=== PATIENT | female | born 2000 | race African-American/Black ===

== ENCOUNTER 2024-12-11 21:34 | Emergency (ER) | payer SELFPAY ==
[2024-12-11 22:20] LABS: Glucose, Urine (Dipstick) Normal (Negative); Leukocyte 100 (Negative); Protein, Urine (Dipstick) 100 mg/dl (Neg-Trace); Specific Gravity, Urine 1.005 (1.005-1.030)
[2024-12-11 22:41] LABS: #Basophils 0.07 10x3/uL (0.0-0.2); #Eosinophils 0.14 10x3/uL (0.0-0.5); #Monocytes 0.87 10x3/uL (0.0-1.1); #Neutrophils 8.46 10x3/uL (1.5-8.4); %Basophils 0.5 % (0.0-2.0); %Eosinophils 1.0 % (0.0-6.0); %Lymphocytes 29.7 % (18.0-47.0); %Monocytes 6.4 % (0.0-10.0); %Neutrophils 62.1 % (40.0-75.0); Hematocrit 37.8 % (34.9-44.5); Hemoglobin 12.3 g/dL (12.0-15.5); Mean Corpuscular Hemoglobin 25.8 pg (27.0-33.0); Mean Corpuscular Volume 79.2 fL (81.6-98.3); Platelet Count 281 10x3/uL (150-450); Red Blood Cell (RBC) Count 4.77 10x6/uL (3.90-5.03); White Blood Cell (WBC) Count 13.62 10x3/uL (3.5-10.5)
[2024-12-11 22:49] LABS: CAUTI Indications for Culture Dysuria,urgency,freq; RBC/HPF Greater than 50 HPF (0-3)
[2024-12-11 22:54] LABS: ALT (SGPT) 14 U/L (Less than 34); AST (SGOT) 24 U/L (11-34); Albumin 4.1 g/dL (3.1-4.5); Alkaline Phosphatase 48 U/L (40-110); Anion Gap 13 mmol/L (10-20); BUN (Urea Nitrogen) 9 mg/dL (7.0-18.7); Bilirubin, Total 0.3 mg/dL (0.3-1.2); Calc. Creatinine Clearance 0 mL/min (70-130); Calcium 9.4 mg/dL (7.8-10.44); Carbon Dioxide 22 mmol/L (22-29); Chloride 104 mmol/L (98-107); Globulin 3.9 g/dL (2.4-3.5); Glucose 100 mg/dL (70-105); Lipase 24 U/L (8-78); Potassium 3.8 mmol/L (3.5-5.1); Sodium 135 mmol/L (136-145)
[2024-12-11 22:55] LABS: Bacteria/HPF 1+ HPF (None Seen); Mucous/LPF 1+ LPF (<2+)
[2024-12-11 22:56] LABS: BHCG - Serum POSITIVE (NEGATIVE); Pregs Control Background? CLEAR/WHITE (CLR/WHITE); Pregs Control Bar Appear? YES (CONTROL BAR)
[2024-12-11 22:56] LABS: Urine Culture Reflex No No
== END 2024-12-11 23:55 | disposition home or self-care (01) ==
LOC: CSHERS 21:34
DX: O03.9 Complete or unspecified spontaneous abortion without complication (principal); Z3A.13 13 weeks gestation of pregnancy
CPT/HCPCS: 76856; 80053; 81001; 83690; 84702; 84703; 85025; 86900; 86901